=== PATIENT | male | born 1975 | race Two or more races ===

== ENCOUNTER 2020-04-01 23:00 | Inpatient (IN) | payer SELFPAY ==
[~2020-04-01] VITALS: Ht 177.8 cm; Wt 93.4 kg
[2020-04-01 23:19] LABS: BASO # 0.1 x10^3/uL (0.0-0.2); BASO % 1 % (0-3); EOS # 0.7 x10^3/uL (0.0-0.7); EOS % 9 % (0-3); HEMATOCRIT 40.8 % (39.0-53.0); LYMPH # 2.7 x10^3/uL (1.0-4.8); LYMPH % 36 % (24-48); MEAN CORPUSCULAR HEMOGLOBIN 31 pg (25-35); MEAN CORPUSCULAR HGB CONC 34 g/dL (31-37); MEAN CORPUSCULAR VOLUME 90 fL (79-100); MONO # 0.6 x10^3/uL (0.0-1.1); MONO % 9 % (0-9); NEUT # 3.4 x10^3/uL (1.8-7.7); NEUT % 46 % (31-73); PLATELET COUNT 259 x10^3/uL (140-400); RED BLOOD COUNT 4.52 x10^6/uL (4.30-5.70); RED CELL DISTRIBUTION WIDTH 13.3 % (11.5-14.5); WHITE BLOOD COUNT 7.5 x10^3/uL (4.0-11.0)
--- NOTE | 2020-04-01 23:19 | PHYS DOC ---
Past Medical History Past Medical History: Diabetes-Type II Past Medical History Limited secondary to altered mental status Past Surgical History: No Surgical History Past Surgical History Limited secondary to altered mental status Alcohol Use: Occasionally Drug Use: None Social History Limited secondary to altered mental status General Adult EDM: Chief Complaint: ALTERED MENTAL STATUS HPI: HPI: Patient is a 44 year old male presents via EMS with altered mental status. EMS reports patient was found unresponsive in his yard. Spouse had reported to them that he had drank a beer prior to this episode. It is unclear if there had been any trauma. Patient had previously been well per EMS. EMS reports giving some Narcan without significant improvement. History of present illness limited secondary to altered mental status. Review of Systems: Review of Systems: Review of systems limited secondary to altered mental status. Current Medications: Current Medications Medications (Trade) Dose Ordered Sig/Leanne Start Time Stop Time Status Last Admin Dose Admin Sodium Chloride 1,000 ml @ 1,000 mls/hr 1X ONCE 04/01/20 23:15 04/02/20 00:14 UNV Physical Exam: PE: Constitutional: Well developed, well nourished, unresponsive HENT: Normocephalic, atraumatic Eyes: PERRL, conjunctiva normal, no discharge Neck: C-collar in place, supple Lungs & Thorax: No respiratory distress, equal chest rise and fall Abdomen: Soft, no tenderness Skin: Warm, dry, no erythema, no rash Extremities: No tenderness, ROM intact, no edema Neurologic: Obtunded, GCS 8 (eye 2, verbal 1, motor 5) Psychologic: Unable to fully assess EKG: EKG: @2313 NSR at 79bpm, NO ST elevation, QRS 110ms, QT/QTc 386/444ms Radiology/Procedures: Radiology/Procedures: PROCEDURE: CT CODE STROKE HEAD WO CT head without contrast HISTORY: Altered mental status, syncope, code stroke. PQRS statement: CT scans at this facility use dose reduction including either automated exposure control, iterative reconstructions, and /or weight based radiation dosing via mA and kV modification when appropriate to reduce radiation dose to as low as reasonably achievable. FINDINGS: No intracranial hemorrhage, mass, hydrocephalus, extra-axial fluid collections or infarction. No acute ischemic changes. Orbits, mastoids and bones are unremarkable. IMPRESSION: Normal exam. FOR INTERNAL CODING PURPOSES Critical result: Findings discussed with CAROLYN COHN at 04/01/2020 11:19 PM. RESULT CODE: (C) Exposure: One or more of the following individualized dose reduction techniques were utilized for this examination: 1. Automated exposure control 2. Adjustment of the mA and/or kV according to patient size 3. Use of iterative reconstruction technique Electronically signed by: Paddy Olmedo MD (04/01/2020 11:20 PM) [facility] PROCEDURE: CT CERVICAL SPINE WO CONTRAST CT cervical spine without contrast PQRS statement: CT scans at this facility use dose reduction including either automated exposure control, iterative reconstructions, and /or weight based radiation dosing via mA and kV modification when appropriate to reduce radiation dose to as low as reasonably achievable. HISTORY: Syncope, altered mental status. FINDINGS: Craniocervical junction intact. Cervical vertebral body height and alignment intact. There are endplate defect likely Schmorl's nodes from degenerative disc disease at C4-C5 and C5-C6. Mild cervical scoliosis. No fracture of the cervical spine. Lung apices and paraspinal tissues are unremarkable. There are probable disc bulges/protrusions at C4-C5 and C5-C6 may contribute to spinal canal stenosis. IMPRESSION: No acute osseous injury of the cervical spine. Cervical disc disease. Electronically signed by: Paddy Olmedo MD (04/01/2020 11:24 PM) [facility] Course & Med Decision Making: Course & Med Decision Making Pertinent Labs and Imaging studies reviewed. (See chart for details) Patient presents via EMS with altered mental status. Patient had been out in his yard and was found to be unresponsive by family. History of drinking a "beer "prior to episode. Patient with decreased GCS but maintaining airway. Gag reflex intact. Code stroke called in route due to concern for possible hemorrhagic stroke. CT head/cervical spine without acute process. Labs obtained and posted to chart. Lactic acid elevated. Hyperglycemia addressed. Concerned that patient may have had prolonged postictal state. Ativan was given. Patient requiring admission for further evaluation and treatment due to continued altered mental state although patient had started to improve during ED stay. Discussed with Dr. Young Cárdenas (hospitalist) who is in agreement with admission. Consult placed to neurology. Discussed findings and plan with family, who acknowledges understanding and agreement. Paige Disclaimer: Paige Disclaimer: This electronic medical record was generated, in whole or in part, using a voice recognition dictation system. Departure Departure Impression: Primary Impression: Altered mental status Qualified Codes: R41.82 - Altered mental status, unspecified Additional Impressions: Hyperglycemia Lactic acidosis Disposition: ADMITTED INPATIENT Admitting Physician: STEPHANIE (Mil Cárdenas) Condition: GUARDED Justicifation of Admission Dx: Justifications for Admission: Justification of Admission Dx: Yes Sepsis: Altered Mental Status Comments: Hyperglycemia, Lactic acidosis Critical Care Time Critical care time was 30 minutes which includes time at bedside, spent in discussion of patient's care with specialists and/or family members, with interpretation of laboratory and/or radiological studies and is exclusive of procedures. CAROLYN COHN DO Apr 01, 2020 23:19
--- NOTE | 2020-04-01 23:23 | RAD ---
CT head without contrast HISTORY: Altered mental status, syncope, code stroke. PQRS statement: CT scans at this facility use dose reduction including either automated exposure control, iterative reconstructions, and /or weight based radiation dosing via mA and kV modification when appropriate to reduce radiation dose to as low as reasonably achievable. FINDINGS: No intracranial hemorrhage, mass, hydrocephalus, extra-axial fluid collections or infarction. No acute ischemic changes. Orbits, mastoids and bones are unremarkable. IMPRESSION: Normal exam. FOR INTERNAL CODING PURPOSES Critical result: Findings discussed with CAROLYN COHN at 04/01/2020 11:19 PM. RESULT CODE: (C) Exposure: One or more of the following individualized dose reduction techniques were utilized for this examination: 1. Automated exposure control 2. Adjustment of the mA and/or kV according to patient size 3. Use of iterative reconstruction technique Electronically signed by: Paddy Olmedo MD (04/01/2020 11:20 PM) [facility]
--- NOTE | 2020-04-01 23:26 | RAD ---
CT cervical spine without contrast PQRS statement: CT scans at this facility use dose reduction including either automated exposure control, iterative reconstructions, and /or weight based radiation dosing via mA and kV modification when appropriate to reduce radiation dose to as low as reasonably achievable. HISTORY: Syncope, altered mental status. FINDINGS: Craniocervical junction intact. Cervical vertebral body height and alignment intact. There are endplate defect likely Schmorl's nodes from degenerative disc disease at C4-C5 and C5-C6. Mild cervical scoliosis. No fracture of the cervical spine. Lung apices and paraspinal tissues are unremarkable. There are probable disc bulges/protrusions at C4-C5 and C5-C6 may contribute to spinal canal stenosis. IMPRESSION: No acute osseous injury of the cervical spine. Cervical disc disease. Electronically signed by: Paddy Olmedo MD (04/01/2020 11:24 PM) [facility]
[2020-04-01 23:28] LABS: PROTHROMBIN TIME PATIENT 12.1 SEC (11.7-14.0)
[2020-04-01 23:28] LABS: BILIRUBIN,URINE NEGATIVE (NEG); CLARITY,URINE CLEAR; COLOR,URINE YELLOW; NITRITE,URINE NEGATIVE (NEG); PH,URINE 5.5 (<5.0-8.0); PROTEIN,URINE NEGATIVE (NEG-TRACE); UROBILINOGEN,URINE 0.2 mg/dL (0.2 mg/dL)
[2020-04-01 23:31] LABS: CREATININE 1.2 mg/dL (0.7-1.3); GFR 65.5
[2020-04-01 23:32] LABS: BACTERIA,URINE 0 /HPF (0-FEW); RBC,URINE 0 /HPF (0-2); SQUAMOUS EPITHELIAL CELL,UR OCC /LPF; WBC,URINE 0 /HPF (0-4)
[2020-04-01 23:34] LABS: ACETAMIN < 2 mcg/ml (10-30); ETHANOL 102 mg/dL (0-10); SALIC < 2.8 mg/dL (2.8-20.0)
[2020-04-01 23:36] LABS: AMPHETAMINE/METHAMPHETAMINE NEG (NEG); BARBITURATES NEG (NEG); BENZODIAZEPINES NEG (NEG); CANNABINOIDS NEG (NEG); COCAINE NEG (NEG); METHADONE NEG (NEG); OPIATES NEG (NEG); PHENCYCLIDINE NEG (NEG)
[2020-04-01 23:36] LABS: ALBUMIN 3.7 g/dL (3.4-5.0); ALBUMIN/GLOBULIN RATIO 1.1 (1.0-1.7); MAGNESIUM 2.2 mg/dL (1.8-2.4); TOTAL BILIRUBIN 0.5 mg/dL (0.2-1.0); TOTAL PROTEIN 7.1 g/dL (6.4-8.2)
[2020-04-02] MEDS ORDERED: IV NORMAL SALINE 1000ML BAG 1,000 ML IV ONE ×2 (00:15→01:30)
[2020-04-02] MEDS ORDERED: INSULIN REGULAR 100 UNIT/ML 3ML VIAL. SQ ONE (00:30)
[2020-04-02] MEDS ORDERED: levETIRAcetam 1,000 MG in IV DEXTROSE 5% 100ML 100 ML IV ONE (01:00)
[2020-04-02] MEDS ORDERED: DEXTROSE 50% 25 GM / 50ML DISP.SYRIN. IV PRN (01:15)
[2020-04-02] MEDS ORDERED: ONDANSETRON PF 4 MG/2 ML VIAL. IV PRN (01:15)
--- NOTE | 2020-04-02 02:06 | RAD ---
AP chest x-ray HISTORY: Altered mental status. FINDINGS: Borderline cardiomegaly may be magnified by the AP portable technique. Mediastinal silhouette normal. No pneumothorax, pulmonary opacities or pleural effusions. Bones are unremarkable. IMPRESSION: No acute process. Electronically signed by: Paddy Olmedo MD (04/02/2020 2:04 AM) [facility]
[2020-04-02 03:06] VITALS: BP 131/62
[2020-04-02] MEDS ORDERED: METF10007 PO (03:37)
--- NOTE | 2020-04-02 04:30 | NUR ---
The patient, SHANIQUE MEDINA, 44 y/o, M admitted by SAMMY RANGEL MD, was given written information regarding hospital policies, unit procedures and contact persons. Valuables were checked and no valuables left with patient. Patients took valuables home.
[2020-04-02 04:39] LABS: BASO # 0.1 x10^3/uL (0.0-0.2); BASO % 1 % (0-3); EOS # 0.6 x10^3/uL (0.0-0.7); EOS % 8 % (0-3); HEMATOCRIT 38.8 % (39.0-53.0); HEMOGLOBIN 13.3 g/dL (13.0-17.5); LYMPH # 2.3 x10^3/uL (1.0-4.8); LYMPH % 32 % (24-48); MEAN CORPUSCULAR HEMOGLOBIN 31 pg (25-35); MEAN CORPUSCULAR HGB CONC 34 g/dL (31-37); MEAN CORPUSCULAR VOLUME 90 fL (79-100); MONO # 0.6 x10^3/uL (0.0-1.1); MONO % 8 % (0-9); NEUT # 3.7 x10^3/uL (1.8-7.7); NEUT % 51 % (31-73); PLATELET COUNT 236 x10^3/uL (140-400); RED BLOOD COUNT 4.32 x10^6/uL (4.30-5.70); RED CELL DISTRIBUTION WIDTH 13.3 % (11.5-14.5); WHITE BLOOD COUNT 7.3 x10^3/uL (4.0-11.0)
[2020-04-02 05:09] LABS: CALCIUM 7.8 mg/dL (8.5-10.1); GFR 80.8; POTASSIUM 3.8 mmol/L (3.5-5.1)
--- NOTE | 2020-04-02 06:27 | EKG ---
[facility] [address] [place] [address] Test Date: 2020-04-01 Test Time: 23:13:48 Pat Name: SHANIQUE RIVERA Department: Room: Gender: M Client Services Representative: : 1975 Requested By: CAROLYN COHN Order Number: [id number] Reading MD: Measurements Intervals [place] Rate: 79 P: 45 AL: 150 QRS: -22 QRSD: 110 T: 13 QT: 386 QTc: 444 Interpretive Statements SINUS RHYTHM LEFTWARD AXIS OTHERWISE NORMAL ECG RI6.02 No previous ECG available for comparison
[2020-04-02 07:00] VITALS: BP 106/61
[2020-04-02] MEDS: INSULIN LISPRO 300 UNITS/3 ML VIAL. SQ SCH ×2 (08:30→12:40)
[2020-04-02] MEDS ORDERED: SITA1TAB11 PO (10:10)
[2020-04-02] MEDS ORDERED: INSU100V13 SQ (10:10)
[2020-04-02] MEDS ORDERED: ATOR40TA59 PO (10:10)
[2020-04-02 10:39] VITALS: BP 124/70
--- NOTE | 2020-04-02 10:42 | NUR ---
SS following for discharge planning. SS reviewed pt chart and discussed with pt RN. Pt is from home with spouse and is currently requiring oxygen. Pt self pay. Dr. Cm consulted for AMS and possible seizure. SS will continue to follow for discharge planning.
[2020-04-02] MEDS ORDERED: FAMOTIDINE 20 MG/2 ML VIAL IVP ONE (11:15)
[2020-04-02] MEDS ORDERED: LIDO:MAALOX 1:1 20 ML SINGLE DOSE. PO PRN (11:15)
[2020-04-02] MEDS ORDERED: FAMO40TA57 PO (12:15)
--- NOTE | 2020-04-02 12:26 | PDOC1 ---
History and Physical Date of Admission Date of Admission DATE: 04/02/20 TIME: 12:26 History of Present Illness History of Present Illness Mr. Doe is a 44 year old male presents via EMS with altered mental status. EMS reports patient was found unresponsive in his yard. Spouse had reported to them that he had drank a beer prior to this episode. It is unclear if there had been any trauma. Patient had previously been well per EMS. 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, maybe daily Past Medical History Cardiovascular: No pertinent hx Pulmonary: No pertinent hx ENT: No pertinent hx Renal/: No pertinent hx Endocrine: Diabetes Past Surgical History Past Surgical History: No pertinent history Family History Family History: Diabetes Social History Smoke: No ALCOHOL: heavy Drugs: None Current Medications Current Medications Current Medications Sodium Chloride 1,000 ml @ 1,000 mls/hr 1X ONCE IV Last administered on 04/02/20at 00:15; Start 04/02/20 at 00:15; Stop 04/02/20 at 01:14; Status DC Insulin Human Regular (HumuLIN R VIAL) 10 unit 1X ONCE SQ Last administered on 04/02/20at 00:36; Start 04/02/20 at 00:30; Stop 04/02/20 at 00:31; Status DC Lorazepam (Ativan Inj) 1 mg 1X ONCE IVP ; Start 04/02/20 at 00:30; Stop 04/02/20 at 00:17; Status DC Levetiracetam 1000 mg/Dextrose 110 ml @ 440 mls/hr 1X ONCE IV ; Start 04/02/20 at 01:00; Stop 04/02/20 at 00:17; Status DC Lorazepam (Ativan Inj) 0.5 mg 1X ONCE IVP Last administered on 04/02/20at 00:27; Start 04/02/20 at 01:00; Stop 04/02/20 at 01:01; Status DC Ondansetron HCl (Zofran) 4 mg PRN Q8HRS PRN IV NAUSEA/VOMITING 1ST CHOICE; Start 04/02/20 at 01:15; Stop 04/03/20 at 01:14 Insulin Human Lispro (HumaLOG) 0-5 UNITS TIDWMEALS SQ Last administered on 04/02/20at 08:30; Start 04/02/20 at 08:00 Dextrose (Dextrose 50%-Water Syringe) 12.5 gm PRN Q15MIN PRN IV SEE COMMENTS; Start 04/02/20 at 01:15 Sodium Chloride 1,000 ml @ 100 mls/hr 1X ONCE IV Last administered on 04/02/20at 03:27; Start 04/02/20 at 01:30; Stop 04/02/20 at 11:29; Status DC Lorazepam (Ativan Inj) 0.5 mg PRN Q4HRS PRN IVP TREMORS; Start 04/02/20 at 01:15; Stop 04/03/20 at 01:14 Famotidine (Pepcid Vial) 20 mg 1X ONCE IVP Last administered on 04/02/20at 11:39; Start 04/02/20 at 11:15; Stop 04/02/20 at 11:16; Status DC Multi-Ingredient Mouthwash/Gargle (Gi Cocktail) 20 ml PRN QID PRN PO CHEST PAIN; Start 04/02/20 at 11:15 Active Scripts Active Reported Levemir (Insulin Detemir) 100 Unit/1 Ml Vial 20 Unit SQ QHS Janumet 50-1,000 Mg Tablet (Sitagliptin Phos/Metformin Hcl) 1 Each Tablet 1 Tab PO BIDWMEALS Atorvastatin Calcium 40 Mg Tablet 40 Mg PO HS Allergies Allergies: Coded Allergies: No Known Drug Allergies (Unverified , 04/01/20) ROS General: No: Chills, Night Sweats, Fatigue, Malaise, Appetite, Other PSYCHOLOGICAL ROS: No: Anxiety, Behavioral Disorder, Concentration difficultie, Decreased libido, Depression, Disorientation, Hallucinations, Hostility, Irritablity, Memory difficulties, Mood Swings, Obsessive thoughts, Physical abuse, Sexual abuse, Sleep disturbances, Suicidal ideation, Other Eyes: No Blurry vision, No Decreased vision, No Double vision, No Dry eyes, No Excessive tearing, No Eye Pain, No Itchy Eyes, No Loss of vision, No Photophobia, No Scotomata, No Uses contacts, No Uses glasses, No Other HEENT: No: Heacaches, Visual Changes, Hearing change, Nasal congestion, Nasal discharge, Oral lesions, Sinus pain, Sore Throat, Epistaxis, Sneezing, Snoring, Tinnitus, Vertigo, Vocal changes, Other Respiratory: No: Cough, Hemoptysis, Orthopnea, Pleuritic Pain, Shortness of breath, SOB with excertion, Sputum Changes, Stridor, Tachypnea, Wheezing, Other Cardiovascular: yes Chest Pain Gastrointestinal: No Nausea, No Vomiting, No Abdominal Pain, No Diarrhea, No Constipation, No Melena, No Hematochezia, No Other Genitourinary: No Dysuria, No Frequency, No Incontinence, No Hematuria, No Retention, No Discharge, No Urgency, No Pain, No Flank Pain, No Other, No , No , No , No , No , No , No Musculoskeletal: No Gait Disturbance, No Joint Pain, No Joint Stiffness, No Joint Swelling, No Muscle Pain, No Muscular Weakness, No Pain In:, No Swelling In:, No Other Neurological: No Behavorial Changes, No Bowel/Bladder ControlChng, No Confusion, No Dizziness, No Gait Disturbance, No Headaches, No Impaired Coord/balance, No Memory Loss, No Numbness/Tingling, No Seizures, No Speech P roblems, No Tremors, No Visual Changes, No Weakness, No Other Skin: No Dry Skin, No Eczema, No Hair Changes, No Lumps, No Mole Changes, No Mottling, No Nail Changes, No Pruritus, No Rash, No Skin Lesion Changes, No Other, No Acne Physical Exam General: Alert, Cooperative, No acute distress HEENT: Atraumatic, PERRLA Lungs: Clear to auscultation, Normal air movement Heart: S1S2 Extremities: No cyanosis Skin: No rashes Neuro: Normal speech, Sensation intact Psych/Mental Status: Mental status NL, Mood NL Vitals Vitals Vital Signs Date Time Temp Pulse Resp B/P (MAP) Pulse Ox O2 Delivery O2 Flow Rate FiO2 04/02/20 10:39 98.0 66 16 124/70 (88) 99 Nasal Cannula 2.0 98.0 Labs Labs Laboratory Tests Test 04/01/20 23:10 04/01/20 23:20 04/02/20 04:20 04/02/20 06:59 White Blood Count 7.5 x10^3/uL (4.0-11.0) 7.3 x10^3/uL (4.0-11.0) Red Blood Count 4.52 x10^6/uL (4.30-5.70) 4.32 x10^6/uL (4.30-5.70) Hemoglobin 14.0 g/dL (13.0-17.5) 13.3 g/dL (13.0-17.5) Hematocrit 40.8 % (39.0-53.0) 38.8 % (39.0-53.0) Mean Corpuscular Volume 90 fL (79-100) 90 fL (79-100) Mean Corpuscular Hemoglobin 31 pg (25-35) 31 pg (25-35) Mean Corpuscular Hemoglobin Concent 34 g/dL (31-37) 34 g/dL (31-37) Red Cell Distribution Width 13.3 % (11.5-14.5) 13.3 % (11.5-14.5) Platelet Count 259 x10^3/uL (140-400) 236 x10^3/uL (140-400) Neutrophils (%) (Auto) 46 % (31-73) 51 % (31-73) Lymphocytes (%) (Auto) 36 % (24-48) 32 % (24-48) Monocytes (%) (Auto) 9 % (0-9) 8 % (0-9) Eosinophils (%) (Auto) 9 % (0-3) 8 % (0-3) Basophils (%) (Auto) 1 % (0-3) 1 % (0-3) Neutrophils # (Auto) 3.4 x10^3/uL (1.8-7.7) 3.7 x10^3/uL (1.8-7.7) Lymphocytes # (Auto) 2.7 x10^3/uL (1.0-4.8) 2.3 x10^3/uL (1.0-4.8) Monocytes # (Auto) 0.6 x10^3/uL (0.0-1.1) 0.6 x10^3/uL (0.0-1.1) Eosinophils # (Auto) 0.7 x10^3/uL (0.0-0.7) 0.6 x10^3/uL (0.0-0.7) Basophils # (Auto) 0.1 x10^3/uL (0.0-0.2) 0.1 x10^3/uL (0.0-0.2) Prothrombin Time 12.1 SEC (11.7-14.0) Prothromb Time International Ratio 0.9 (0.8-1.1) Activated Partial Thromboplast Time 29 SEC (24-38) Sodium Level 138 mmol/L (136-145) 137 mmol/L (136-145) Potassium Level 4.0 mmol/L (3.5-5.1) 3.8 mmol/L (3.5-5.1) Chloride Level 103 mmol/L (98-107) 105 mmol/L (98-107) Carbon Dioxide Level 25 mmol/L (21-32) 24 mmol/L (21-32) Anion Gap 10 (6-14) 8 (6-14) Blood Urea Nitrogen 19 mg/dL (8-26) 16 mg/dL (8-26) Creatinine 1.2 mg/dL (0.7-1.3) 1.0 mg/dL (0.7-1.3) Estimated GFR (Cockcroft-Gault) 65.5 80.8 BUN/Creatinine Ratio 16 (6-20) Glucose Level 310 mg/dL (70-99) 241 mg/dL (70-99) Lactic Acid Level 2.7 mmol/L (0.4-2.0) 1.9 mmol/L (0.4-2.0) Calcium Level 8.0 mg/dL (8.5-10.1) 7.8 mg/dL (8.5-10.1) Magnesium Level 2.2 mg/dL (1.8-2.4) Total Bilirubin 0.5 mg/dL (0.2-1.0) Aspartate Amino Transf (AST/SGOT) 18 U/L (15-37) Alanine Aminotransferase (ALT/SGPT) 34 U/L (16-63) Alkaline Phosphatase 85 U/L (46-116) Ammonia 17 mcmol/L (11-34) Creatine Kinase 383 U/L (39-308) Creatine Kinase MB (Mass) 1.4 ng/mL (0.0-3.6) Creatine Kinase MB Relative Index 0.4 % (0-4) Troponin I Quantitative < 0.017 ng/mL (0.000-0.055) < 0.017 ng/mL (0.000-0.055) Total Protein 7.1 g/dL (6.4-8.2) Albumin 3.7 g/dL (3.4-5.0) Albumin/Globulin Ratio 1.1 (1.0-1.7) Salicylates Level < 2.8 mg/dL (2.8-20.0) Salicylate Last Dose Date Unk Salicylate Last Dose Time Unk Acetaminophen Level < 2 mcg/ml (10-30) Acetaminophen Last Dose Date Unk Acetaminophen Last Dose Time Unk Ethyl Alcohol Level 102 mg/dL (0-10) Acetone Level Neg (NEG) Urine Collection Type U cath Urine Color Yellow Urine Clarity Clear Urine pH 5.5 (<5.0-8.0) Urine Specific [place] >=1.030 (1.000-1.030) Urine Protein Negative mg/dL (NEG-TRACE) Urine Glucose (UA) >=1000 mg/dL (NEG) Urine Ketones (Stick) Trace mg/dL (NEG) Urine Blood Negative (NEG) Urine Nitrite Negative (NEG) Urine Bilirubin Negative (NEG) Urine Urobilinogen Dipstick 0.2 mg/dL (0.2 mg/dL) Urine Leukocyte Esterase Negative (NEG) Urine RBC 0 /HPF (0-2) Urine WBC 0 /HPF (0-4) Urine Squamous Epithelial Cells Occ /LPF Urine Transitional Epithelial Cells Few /LPF Urine Bacteria 0 /HPF (0-FEW) Urine Mucus Mod /LPF Urine Opiates Screen Neg (NEG) Urine Methadone Screen Neg (NEG) Urine Barbiturates Neg (NEG) Urine Phencyclidine Screen Neg (NEG) Urine Amphetamine/Methamphetamine Neg (NEG) Urine Benzodiazepines Screen Neg (NEG) Urine Cocaine Screen Neg (NEG) Urine Cannabinoids Screen Neg (NEG) Urine Ethyl Alcohol Pos (NEG) Glucose (Fingerstick) 198 mg/dL (70-99) Test 04/02/20 07:00 04/02/20 11:16 Troponin I Quantitative < 0.017 ng/mL (0.000-0.055) Glucose (Fingerstick) 172 mg/dL (70-99) Laboratory Tests Test 04/01/20 23:10 04/01/20 23:20 04/02/20 04:20 04/02/20 06:59 White Blood Count 7.5 x10^3/uL (4.0-11.0) 7.3 x10^3/uL (4.0-11.0) Red Blood Count 4.52 x10^6/uL (4.30-5.70) 4.32 x10^6/uL (4.30-5.70) Hemoglobin 14.0 g/dL (13.0-17.5) 13.3 g/dL (13.0-17.5) Hematocrit 40.8 % (39.0-53.0) 38.8 % (39.0-53.0) Mean Corpuscular Volume 90 fL (79-100) 90 fL (79-100) Mean Corpuscular Hemoglobin 31 pg (25-35) 31 pg (25-35) Mean Corpuscular Hemoglobin Concent 34 g/dL (31-37) 34 g/dL (31-37) Red Cell Distribution Width 13.3 % (11.5-14.5) 13.3 % (11.5-14.5) Platelet Count 259 x10^3/uL (140-400) 236 x10^3/uL (140-400) Neutrophils (%) (Auto) 46 % (31-73) 51 % (31-73) Lymphocytes (%) (Auto) 36 % (24-48) 32 % (24-48) Monocytes (%) (Auto) 9 % (0-9) 8 % (0-9) Eosinophils (%) (Auto) 9 % (0-3) 8 % (0-3) Basophils (%) (Auto) 1 % (0-3) 1 % (0-3) Neutrophils # (Auto) 3.4 x10^3/uL (1.8-7.7) 3.7 x10^3/uL (1.8-7.7) Lymphocytes # (Auto) 2.7 x10^3/uL (1.0-4.8) 2.3 x10^3/uL (1.0-4.8) Monocytes # (Auto) 0.6 x10^3/uL (0.0-1.1) 0.6 x10^3/uL (0.0-1.1) Eosinophils # (Auto) 0.7 x10^3/uL (0.0-0.7) 0.6 x10^3/uL (0.0-0.7) Basophils # (Auto) 0.1 x10^3/uL (0.0-0.2) 0.1 x10^3/uL (0.0-0.2) Prothrombin Time 12.1 SEC (11.7-14.0) Prothromb Time International Ratio 0.9 (0.8-1.1) Activated Partial Thromboplast Time 29 SEC (24-38) Sodium Level 138 mmol/L (136-145) 137 mmol/L (136-145) Potassium Level 4.0 mmol/L (3.5-5.1) 3.8 mmol/L (3.5-5.1) Chloride Level 103 mmol/L (98-107) 105 mmol/L (98-107) Carbon Dioxide Level 25 mmol/L (21-32) 24 mmol/L (21-32) Anion Gap 10 (6-14) 8 (6-14) Blood Urea Nitrogen 19 mg/dL (8-26) 16 mg/dL (8-26) Creatinine 1.2 mg/dL (0.7-1.3) 1.0 mg/dL (0.7-1.3) Estimated GFR (Cockcroft-Gault) 65.5 80.8 BUN/Creatinine Ratio 16 (6-20) Glucose Level 310 mg/dL (70-99) 241 mg/dL (70-99) Lactic Acid Level 2.7 mmol/L (0.4-2.0) 1.9 mmol/L (0.4-2.0) Calcium Level 8.0 mg/dL (8.5-10.1) 7.8 mg/dL (8.5-10.1) Magnesium Level 2.2 mg/dL (1.8-2.4) Total Bilirubin 0.5 mg/dL (0.2-1.0) Aspartate Amino Transf (AST/SGOT) 18 U/L (15-37) Alanine Aminotransferase (ALT/SGPT) 34 U/L (16-63) Alkaline Phosphatase 85 U/L (46-116) Ammonia 17 mcmol/L (11-34) Creatine Kinase 383 U/L (39-308) Creatine Kinase MB (Mass) 1.4 ng/mL (0.0-3.6) Creatine Kinase MB Relative Index 0.4 % (0-4) Troponin I Quantitative < 0.017 ng/mL (0.000-0.055) < 0.017 ng/mL (0.000-0.055) Total Protein 7.1 g/dL (6.4-8.2) Albumin 3.7 g/dL (3.4-5.0) Albumin/Globulin Ratio 1.1 (1.0-1.7) Salicylates Level < 2.8 mg/dL (2.8-20.0) Salicylate Last Dose Date Unk Salicylate Last Dose Time Unk Acetaminophen Level < 2 mcg/ml (10-30) Acetaminophen Last Dose Date Unk Acetaminophen Last Dose Time Unk Ethyl Alcohol Level 102 mg/dL (0-10) Acetone Level Neg (NEG) Urine Collection Type U cath Urine Color Yellow Urine Clarity Clear Urine pH 5.5 (<5.0-8.0) Urine Specific [place] >=1.030 (1.000-1.030) Urine Protein Negative mg/dL (NEG-TRACE) Urine Glucose (UA) >=1000 mg/dL (NEG) Urine Ketones (Stick) Trace mg/dL (NEG) Urine Blood Negative (NEG) Urine Nitrite Negative (NEG) Urine Bilirubin Negative (NEG) Urine Urobilinogen Dipstick 0.2 mg/dL (0.2 mg/dL) Urine Leukocyte Esterase Negative (NEG) Urine RBC 0 /HPF (0-2) Urine WBC 0 /HPF (0-4) Urine Squamous Epithelial Cells Occ /LPF Urine Transitional Epithelial Cells Few /LPF Urine Bacteria 0 /HPF (0-FEW) Urine Mucus Mod /LPF Urine Opiates Screen Neg (NEG) Urine Methadone Screen Neg (NEG) Urine Barbiturates Neg (NEG) Urine Phencyclidine Screen Neg (NEG) Urine Amphetamine/Methamphetamine Neg (NEG) Urine Benzodiazepines Screen Neg (NEG) Urine Cocaine Screen Neg (NEG) Urine Cannabinoids Screen Neg (NEG) Urine Ethyl Alcohol Pos (NEG) Glucose (Fingerstick) 198 mg/dL (70-99) Test 04/02/20 07:00 04/02/20 11:16 Troponin I Quantitative < 0.017 ng/mL (0.000-0.055) Glucose (Fingerstick) 172 mg/dL (70-99) VTE Prophylaxis Ordered VTE Prophylaxis Devices: No VTE Pharmacological Prophylaxi: No Assessment/Plan Assessment/Plan syncope, alcohol intoxication chest pain, GERD, better with PEPCID, will send script to his pharmacy [facility], 2 meds, good control here, MATTHEW KENNEDY MD Apr 02, 2020 12:26
--- NOTE | 2020-04-02 12:48 | PDOC2 ---
NEUROLOGY CONSULT Date of Service DOS: DATE: 04/02/20 TIME: 12:43 Reason for Consult Reason for Consult: Altered mental status, possible seizure Referring Physician Referring Physician: Dr. Cárdenas Source Source: Caregiver (), Chart review, Patient History of Present Illness History of Present Illness The patient is a 44-year-old right-handed male who got up yesterday morning and had some chest pain. He went to work. After work he had "2 beers" with some friends. Then he came home and was playing with the dog and his child in the front yard. Patient passed out and was unresponsive. He was still unresponsive in the emergency department. He woke up later yesterday evening. There is no history of stroke, seizure, or head injury. There was no evidence of any convulsive activity this time. 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 Current Medications Current Medications Current Medications Sodium Chloride 1,000 ml @ 1,000 mls/hr 1X ONCE IV Last administered on 04/02/20at 00:15; Start 04/02/20 at 00:15; Stop 04/02/20 at 01:14; Status DC Insulin Human Regular (HumuLIN R VIAL) 10 unit 1X ONCE SQ Last administered on 04/02/20at 00:36; Start 04/02/20 at 00:30; Stop 04/02/20 at 00:31; Status DC Lorazepam (Ativan Inj) 1 mg 1X ONCE IVP ; Start 04/02/20 at 00:30; Stop 04/02/20 at 00:17; Status DC Levetiracetam 1000 mg/Dextrose 110 ml @ 440 mls/hr 1X ONCE IV ; Start 04/02/20 at 01:00; Stop 04/02/20 at 00:17; Status DC Lorazepam (Ativan Inj) 0.5 mg 1X ONCE IVP Last administered on 04/02/20at 00:27; Start 04/02/20 at 01:00; Stop 04/02/20 at 01:01; Status DC Ondansetron HCl (Zofran) 4 mg PRN Q8HRS PRN IV NAUSEA/VOMITING 1ST CHOICE; Start 04/02/20 at 01:15; Stop 04/03/20 at 01:14 Insulin Human Lispro (HumaLOG) 0-5 UNITS TIDWMEALS SQ Last administered on 04/02/20at 12:40; Start 04/02/20 at 08:00 Dextrose (Dextrose 50%-Water Syringe) 12.5 gm PRN Q15MIN PRN IV SEE COMMENTS; Start 04/02/20 at 01:15 Sodium Chloride 1,000 ml @ 100 mls/hr 1X ONCE IV Last administered on 04/02/20at 03:27; Start 04/02/20 at 01:30; Stop 04/02/20 at 11:29; Status DC Lorazepam (Ativan Inj) 0.5 mg PRN Q4HRS PRN IVP TREMORS; Start 04/02/20 at 01:15; Stop 04/03/20 at 01:14 Famotidine (Pepcid Vial) 20 mg 1X ONCE IVP Last administered on 04/02/20at 11:39; Start 04/02/20 at 11:15; Stop 04/02/20 at 11:16; Status DC Multi-Ingredient Mouthwash/Gargle (Gi Cocktail) 20 ml PRN QID PRN PO CHEST PAIN; Start 04/02/20 at 11:15 Active Scripts Active Reported Levemir (Insulin Detemir) 100 Unit/1 Ml Vial 20 Unit SQ QHS Janumet 50-1,000 Mg Tablet (Sitagliptin Phos/Metformin Hcl) 1 Each Tablet 1 Tab PO BIDWMEALS Atorvastatin Calcium 40 Mg Tablet 40 Mg PO HS Allergies Allergies: Coded Allergies: No Known Drug Allergies (Unverified , 04/01/20) ROS Review of System Negative for fever, chills, weight loss, shortness of breath, chest pain, indigestion, hematochezia, melena, and dysuria. Full 14-point review of systems is negative. Physical Exam Physical Examination General: Well-developed, well-nourished male in no acute distress HEENT: Normocephalic andatraumatic. Temporal arteriespulsatile and nontender. Neck: Supple without bruit, no meningismus Musculoskeletal: Stability:see neurologic. Gait exam:see neurologic. Tone:see neurologic.Strength:see neurologic. Neurological: Mental Status:intact, orientation, memory, attention span/concentration, language, fund of knowledge normal. Cranial Nerves:Pupils equal and reactive to light, extraocular movements areintact, visual carson are full to confron tation. Facial sensation is normal. There is no facial asymmetry. Vestibulo- ocular reflex is intact. Palate elevates and tongue protrudes in midline. All other cranial related problems are negative except as mentioned before.Reflexes:2+ and symmetric with flexor plantar responses. Motor:5/5 strength with normal tone and bulk. Coordination:Finger-nose finger and [id number] testing are normal. Rapid alternating movements and fine finger movements are intact. Gait:Normal, including tandem. Sensory:Normal pinprick, vibration, light touch, proprioception. Vitals VITALS Vital Signs Date Time Temp Pulse Resp B/P (MAP) Pulse Ox O2 Delivery O2 Flow Rate FiO2 04/02/20 10:39 98.0 66 16 124/70 (88) 99 Nasal Cannula 2.0 98.0 Labs Labs Laboratory Tests Test 04/01/20 23:10 04/01/20 23:20 04/02/20 04:20 04/02/20 06:59 White Blood Count 7.5 x10^3/uL (4.0-11.0) 7.3 x10^3/uL (4.0-11.0) Red Blood Count 4.52 x10^6/uL (4.30-5.70) 4.32 x10^6/uL (4.30-5.70) Hemoglobin 14.0 g/dL (13.0-17.5) 13.3 g/dL (13.0-17.5) Hematocrit 40.8 % (39.0-53.0) 38.8 % (39.0-53.0) Mean Corpuscular Volume 90 fL (79-100) 90 fL (79-100) Mean Corpuscular Hemoglobin 31 pg (25-35) 31 pg (25-35) Mean Corpuscular Hemoglobin Concent 34 g/dL (31-37) 34 g/dL (31-37) Red Cell Distribution Width 13.3 % (11.5-14.5) 13.3 % (11.5-14.5) Platelet Count 259 x10^3/uL (140-400) 236 x10^3/uL (140-400) Neutrophils (%) (Auto) 46 % (31-73) 51 % (31-73) Lymphocytes (%) (Auto) 36 % (24-48) 32 % (24-48) Monocytes (%) (Auto) 9 % (0-9) 8 % (0-9) Eosinophils (%) (Auto) 9 % (0-3) 8 % (0-3) Basophils (%) (Auto) 1 % (0-3) 1 % (0-3) Neutrophils # (Auto) 3.4 x10^3/uL (1.8-7.7) 3.7 x10^3/uL (1.8-7.7) Lymphocytes # (Auto) 2.7 x10^3/uL (1.0-4.8) 2.3 x10^3/uL (1.0-4.8) Monocytes # (Auto) 0.6 x10^3/uL (0.0-1.1) 0.6 x10^3/uL (0.0-1.1) Eosinophils # (Auto) 0.7 x10^3/uL (0.0-0.7) 0.6 x10^3/uL (0.0-0.7) Basophils # (Auto) 0.1 x10^3/uL (0.0-0.2) 0.1 x10^3/uL (0.0-0.2) Prothrombin Time 12.1 SEC (11.7-14.0) Prothromb Time International Ratio 0.9 (0.8-1.1) Activated Partial Thromboplast Time 29 SEC (24-38) Sodium Level 138 mmol/L (136-145) 137 mmol/L (136-145) Potassium Level 4.0 mmol/L (3.5-5.1) 3.8 mmol/L (3.5-5.1) Chloride Level 103 mmol/L (98-107) 105 mmol/L (98-107) Carbon Dioxide Level 25 mmol/L (21-32) 24 mmol/L (21-32) Anion Gap 10 (6-14) 8 (6-14) Blood Urea Nitrogen 19 mg/dL (8-26) 16 mg/dL (8-26) Creatinine 1.2 mg/dL (0.7-1.3) 1.0 mg/dL (0.7-1.3) Estimated GFR (Cockcroft-Gault) 65.5 80.8 BUN/Creatinine Ratio 16 (6-20) Glucose Level 310 mg/dL (70-99) 241 mg/dL (70-99) Lactic Acid Level 2.7 mmol/L (0.4-2.0) 1.9 mmol/L (0.4-2.0) Calcium Level 8.0 mg/dL (8.5-10.1) 7.8 mg/dL (8.5-10.1) Magnesium Level 2.2 mg/dL (1.8-2.4) Total Bilirubin 0.5 mg/dL (0.2-1.0) Aspartate Amino Transf (AST/SGOT) 18 U/L (15-37) Alanine Aminotransferase (ALT/SGPT) 34 U/L (16-63) Alkaline Phosphatase 85 U/L (46-116) Ammonia 17 mcmol/L (11-34) Creatine Kinase 383 U/L (39-308) Creatine Kinase MB (Mass) 1.4 ng/mL (0.0-3.6) Creatine Kinase MB Relative Index 0.4 % (0-4) Troponin I Quantitative < 0.017 ng/mL (0.000-0.055) < 0.017 ng/mL (0.000-0.055) Total Protein 7.1 g/dL (6.4-8.2) Albumin 3.7 g/dL (3.4-5.0) Albumin/Globulin Ratio 1.1 (1.0-1.7) Salicylates Level < 2.8 mg/dL (2.8-20.0) Salicylate Last Dose Date Unk Salicylate Last Dose Time Unk Acetaminophen Level < 2 mcg/ml (10-30) Acetaminophen Last Dose Date Unk Acetaminophen Last Dose Time Unk Ethyl Alcohol Level 102 mg/dL (0-10) Acetone Level Neg (NEG) Urine Collection Type U cath Urine Color Yellow Urine Clarity Clear Urine pH 5.5 (<5.0-8.0) Urine Specific [place] >=1.030 (1.000-1.030) Urine Protein Negative mg/dL (NEG-TRACE) Urine Glucose (UA) >=1000 mg/dL (NEG) Urine Ketones (Stick) Trace mg/dL (NEG) Urine Blood Negative (NEG) Urine Nitrite Negative (NEG) Urine Bilirubin Negative (NEG) Urine Urobilinogen Dipstick 0.2 mg/dL (0.2 mg/dL) Urine Leukocyte Esterase Negative (NEG) Urine RBC 0 /HPF (0-2) Urine WBC 0 /HPF (0-4) Urine Squamous Epithelial Cells Occ /LPF Urine Transitional Epithelial Cells Few /LPF Urine Bacteria 0 /HPF (0-FEW) Urine Mucus Mod /LPF Urine Opiates Screen Neg (NEG) Urine Methadone Screen Neg (NEG) Urine Barbiturates Neg (NEG) Urine Phencyclidine Screen Neg (NEG) Urine Amphetamine/Methamphetamine Neg (NEG) Urine Benzodiazepines Screen Neg (NEG) Urine Cocaine Screen Neg (NEG) Urine Cannabinoids Screen Neg (NEG) Urine Ethyl Alcohol Pos (NEG) Glucose (Fingerstick) 198 mg/dL (70-99) Test 04/02/20 07:00 04/02/20 11:16 Troponin I Quantitative < 0.017 ng/mL (0.000-0.055) Glucose (Fingerstick) 172 mg/dL (70-99) Laboratory Tests Test 04/01/20 23:10 04/01/20 23:20 04/02/20 04:20 04/02/20 06:59 White Blood Count 7.5 x10^3/uL (4.0-11.0) 7.3 x10^3/uL (4.0-11.0) Red Blood Count 4.52 x10^6/uL (4.30-5.70) 4.32 x10^6/uL (4.30-5.70) Hemoglobin 14.0 g/dL (13.0-17.5) 13.3 g/dL (13.0-17.5) Hematocrit 40.8 % (39.0-53.0) 38.8 % (39.0-53.0) Mean Corpuscular Volume 90 fL (79-100) 90 fL (79-100) Mean Corpuscular Hemoglobin 31 pg (25-35) 31 pg (25-35) Mean Corpuscular Hemoglobin Concent 34 g/dL (31-37) 34 g/dL (31-37) Red Cell Distribution Width 13.3 % (11.5-14.5) 13.3 % (11.5-14.5) Platelet Count 259 x10^3/uL (140-400) 236 x10^3/uL (140-400) Neutrophils (%) (Auto) 46 % (31-73) 51 % (31-73) Lymphocytes (%) (Auto) 36 % (24-48) 32 % (24-48) Monocytes (%) (Auto) 9 % (0-9) 8 % (0-9) Eosinophils (%) (Auto) 9 % (0-3) 8 % (0-3) Basophils (%) (Auto) 1 % (0-3) 1 % (0-3) Neutrophils # (Auto) 3.4 x10^3/uL (1.8-7.7) 3.7 x10^3/uL (1.8-7.7) Lymphocytes # (Auto) 2.7 x10^3/uL (1.0-4.8) 2.3 x10^3/uL (1.0-4.8) Monocytes # (Auto) 0.6 x10^3/uL (0.0-1.1) 0.6 x10^3/uL (0.0-1.1) Eosinophils # (Auto) 0.7 x10^3/uL (0.0-0.7) 0.6 x10^3/uL (0.0-0.7) Basophils # (Auto) 0.1 x10^3/uL (0.0-0.2) 0.1 x10^3/uL (0.0-0.2) Prothrombin Time 12.1 SEC (11.7-14.0) Prothromb Time International Ratio 0.9 (0.8-1.1) Activated Partial Thromboplast Time 29 SEC (24-38) Sodium Level 138 mmol/L (136-145) 137 mmol/L (136-145) Potassium Level 4.0 mmol/L (3.5-5.1) 3.8 mmol/L (3.5-5.1) Chloride Level 103 mmol/L (98-107) 105 mmol/L (98-107) Carbon Dioxide Level 25 mmol/L (21-32) 24 mmol/L (21-32) Anion Gap 10 (6-14) 8 (6-14) Blood Urea Nitrogen 19 mg/dL (8-26) 16 mg/dL (8-26) Creatinine 1.2 mg/dL (0.7-1.3) 1.0 mg/dL (0.7-1.3) Estimated GFR (Cockcroft-Gault) 65.5 80.8 BUN/Creatinine Ratio 16 (6-20) Glucose Level 310 mg/dL (70-99) 241 mg/dL (70-99) Lactic Acid Level 2.7 mmol/L (0.4-2.0) 1.9 mmol/L (0.4-2.0) Calcium Level 8.0 mg/dL (8.5-10.1) 7.8 mg/dL (8.5-10.1) Magnesium Level 2.2 mg/dL (1.8-2.4) Total Bilirubin 0.5 mg/dL (0.2-1.0) Aspartate Amino Transf (AST/SGOT) 18 U/L (15-37) Alanine Aminotransferase (ALT/SGPT) 34 U/L (16-63) Alkaline Phosphatase 85 U/L (46-116) Ammonia 17 mcmol/L (11-34) Creatine Kinase 383 U/L (39-308) Creatine Kinase MB (Mass) 1.4 ng/mL (0.0-3.6) Creatine Kinase MB Relative Index 0.4 % (0-4) Troponin I Quantitative < 0.017 ng/mL (0.000-0.055) < 0.017 ng/mL (0.000-0.055) Total Protein 7.1 g/dL (6.4-8.2) Albumin 3.7 g/dL (3.4-5.0) Albumin/Globulin Ratio 1.1 (1.0-1.7) Salicylates Level < 2.8 mg/dL (2.8-20.0) Salicylate Last Dose Date Unk Salicylate Last Dose Time Unk Acetaminophen Level < 2 mcg/ml (10-30) Acetaminophen Last Dose Date Unk Acetaminophen Last Dose Time Unk Ethyl Alcohol Level 102 mg/dL (0-10) Acetone Level Neg (NEG) Urine Collection Type U cath Urine Color Yellow Urine Clarity Clear Urine pH 5.5 (<5.0-8.0) Urine Specific [place] >=1.030 (1.000-1.030) Urine Protein Negative mg/dL (NEG-TRACE) Urine Glucose (UA) >=1000 mg/dL (NEG) Urine Ketones (Stick) Trace mg/dL (NEG) Urine Blood Negative (NEG) Urine Nitrite Negative (NEG) Urine Bilirubin Negative (NEG) Urine Urobilinogen Dipstick 0.2 mg/dL (0.2 mg/dL) Urine Leukocyte Esterase Negative (NEG) Urine RBC 0 /HPF (0-2) Urine WBC 0 /HPF (0-4) Urine Squamous Epithelial Cells Occ /LPF Urine Transitional Epithelial Cells Few /LPF Urine Bacteria 0 /HPF (0-FEW) Urine Mucus Mod /LPF Urine Opiates Screen Neg (NEG) Urine Methadone Screen Neg (NEG) Urine Barbiturates Neg (NEG) Urine Phencyclidine Screen Neg (NEG) Urine Amphetamine/Methamphetamine Neg (NEG) Urine Benzodiazepines Screen Neg (NEG) Urine Cocaine Screen Neg (NEG) Urine Cannabinoids Screen Neg (NEG) Urine Ethyl Alcohol Pos (NEG) Glucose (Fingerstick) 198 mg/dL (70-99) Test 04/02/20 07:00 04/02/20 11:16 Troponin I Quantitative < 0.017 ng/mL (0.000-0.055) Glucose (Fingerstick) 172 mg/dL (70-99) Images Images CT cervical spine without contrast PQRS statement: CT scans at this facility use dose reduction including either automated exposure control, iterative reconstructions, and /or weight based radiation dosing via mA and kV modification when appropriate to reduce radiation dose to as low as reasonably achievable. HISTORY: Syncope, altered mental status. FINDINGS: Craniocervical junction intact. Cervical vertebral body height and alignment intact. There are endplate defect likely Schmorl's nodes from degenerative disc disease at C4-C5 and C5-C6. Mild cervical scoliosis. No fracture of the cervical spine. Lung apices and paraspinal tissues are unremarkable. There are probable disc bulges/protrusions at C4-C5 and C5-C6 may contribute to spinal canal stenosis. IMPRESSION: No acute osseous injury of the cervical spine. Cervical disc disease. CT head without contrast HISTORY: Altered mental status, syncope, code stroke. PQRS statement: CT scans at this facility use dose reduction including either automated exposure control, iterative reconstructions, and /or weight based radiation dosing via mA and kV modification when appropriate to reduce radiation dose to as low as reasonably achievable. FINDINGS: No intracranial hemorrhage, mass, hydrocephalus, extra-axial fluid collections or infarction. No acute ischemic changes. Orbits, mastoids and bones are unremarkable. IMPRESSION: Normal exam. Assessment/Plan Assessment/Plan Impression: Syncope due to alcohol intoxication, no evidence that he had a seizure. Chest pain, probably gastrointestinal related, cardiology consult pending. Recommendations: I do not see a need for electroencephalogram or further neurological studies as I would not start this patient on anticonvulsants even if the EEG was positive. I advised him to abstain from alcohol Okay for discharge Follow-up with neurology as needed. Thank you for letting me help with the patient's care. RAYO HERNANDEZ MD Apr 02, 2020 12:48
--- NOTE | 2020-04-02 13:34 | NUR ---
Discharge Note: [facility] Discharge instructions and discharge home medications reviewed with Patient and a copy given. All questions have been answered and understanding verbalized. The following instructions and handouts were given: Alcohol, When is to much Discontinued lines and drains: 2 IV catheters removed intact. Tele monitor removed. Patient discharged to Home with self care via wheelchair.
== END 2020-04-02 14:43 | disposition home or self-care (01) | DRG 897 ==
LOC: ER 23:00 → 2 SOUTH 04-02 01:10
PROVIDERS: ADMIT Internal Medicine; ATTEND Internal Medicine
DX: F10.129 Alcohol abuse with intoxication, unspecified (principal); E87.2 Acidosis; E11.65 Type 2 diabetes mellitus with hyperglycemia; K21.9 Gastro-esophageal reflux disease without esophagitis; E78.5 Hyperlipidemia, unspecified; M50.90 Cervical disc disorder, unspecified, unspecified cervical region; Z82.49 Family history of ischemic heart disease and other diseases of the circulatory system; Z83.3 Family history of diabetes mellitus
CPT/HCPCS: 36415; 70450; 71045; 72125; 80048; 80053; 80307; 80329; 81001; 82010; 82140; 82553; 82962; 83605; 83735; 84484; 85025; 85610; 85730; 93005; 96361; 96372; 96374; G0480; J1815; J2060; J3490; J7030; 99285-25; G0378